=== PATIENT | female | born 2000 | race Caucasian/White ===

== ENCOUNTER 2022-05-23 12:34 | Emergency (ER) | payer OTHER ==
[~2022-05-23] VITALS: Ht 167.6 cm; Wt 93.2 kg
[2022-05-23 13:00] VITALS: BP 131/78
== END 2022-05-23 14:27 | disposition home or self-care (01) ==
LOC: ER 12:34
DX: S60.812A Abrasion of left wrist, initial encounter (principal); X58.XXXA Exposure to other specified factors, initial encounter; Y93.89 Activity, other specified; Y92.89 Other specified places as the place of occurrence of the external cause; Y99.8 Other external cause status
CPT/HCPCS: 99281

== ENCOUNTER 2024-03-03 18:31 | Emergency (ER) | payer OTHER ==
[~2024-03-03] VITALS: Ht 167.6 cm; Wt 90.9 kg
[2024-03-03 18:35] VITALS: BP 130/80; PULSE 98; RESP 16; TEMP 97.7; O2SAT 99
== END 2024-03-03 19:27 | disposition home or self-care (01) ==
LOC: ER 18:32
DX: S80.01XA Contusion of right knee, initial encounter (principal); M79.644 Pain in right finger(s); W19.XXXA Unspecified fall, initial encounter; Y93.89 Activity, other specified; Y92.89 Other specified places as the place of occurrence of the external cause; Y99.8 Other external cause status
CPT/HCPCS: 29125; 73140; 99283